=== PATIENT | male | born 1985 | race African-American/Black ===

== ENCOUNTER 2017-11-26 17:04 | Inpatient (IN) | payer BC ==
[2017-11-26 18:30] LABS: Absolute Lymphocytes (CBC) 1.3 K/uL (0.7-4.9); Absolute Monocytes 0.4 K/uL (0.1-1.3); Absolute Neutrophil 7.6 K/uL (1.8-8.0); Basophils % 1.1 % (0-1.3); Eosinophils % 0.1 % (0-4.4); Hematocrit 47.2 % (39.6-49.0); Lymphocytes % 13.8 % (15.3-44.8); MCH 28.9 pg (27.0-35.0); MCV 88.1 fL (80-100); MPV 8.1 fL (7.6-11.3); RBC Red Blood Cell Count 5.36 M/uL (4.33-5.43)
[2017-11-26 18:40] LABS: Protime INR 1.03
[2017-11-26 18:46] LABS: Bicarbonate 18 mEq/L (21-31); Potassium 4.7 mEq/L (3.6-5.0); Sodium Level 126 mEq/L (135-145)
[2017-11-26 18:52] LABS: ALT/SGPT 52 IU/L (10-60); AST/SGOT 31 IU/L (10-42); Albumin 4.3 g/dL (3.2-5.5); Alkaline Phosphatase 51 IU/L (42-121); BUN Blood Urea Nitrogen 15 mg/dL (6-20); Bilirubin Direct 0.2 mg/dL (0-0.2); Bilirubin Total 1.3 mg/dL (0.3-1.2); Creatine Phosphokinase 90 IU/L (22-269); Magnesium 1.7 mg/dL (1.8-2.5); Protein, Total 8.4 g/dL (6.0-8.3)
[2017-11-26 18:54] LABS: CKMB Creatine Kinase MB 1.1 ng/ml (0.3-4.0)
[2017-11-26 19:01] LABS: Glucose Level 508 mg/dL (65-120)
[2017-11-26] MEDS ORDERED: ONDANSETRON 4 MG/2 ML VIAL ONE (19:08)
[2017-11-26] MEDS ORDERED: NA CHLORIDE 0.9% 1,000 ML ONE ×3 (19:08→22:39)
[2017-11-26 19:30] LABS: Blood Gas Oxyhemoglobin 92.1 % (94-97)
[2017-11-26] MEDS ORDERED: ASPIRIN 81 MG CHEWABLE TABLET ONE (19:33)
[2017-11-26] MEDS ORDERED: INSULIN -REGULAR HUMAN 50 UNIT/0.5 ML ML ONE (19:34)
[2017-11-26] MEDS ORDERED: MORPHINE 4 MG/ML SYR ONE (19:34)
[2017-11-26] MEDS ORDERED: MAGNESIUM SULFATE 1 gm IVPB 1 GM/100 ML BAG IV ONE (19:35)
[2017-11-26 19:43] LABS: Phosphorus 3.3 mg/dL (2.5-4.3)
--- NOTE | 2017-11-26 19:45 | RAD REPORT ---
EXAM DESCRIPTION: Tien Single View11/26/2017 6:28 pm CLINICAL HISTORY: Chest pain COMPARISON: none FINDINGS: The lungs appear clear of acute infiltrate. The heart is normal size IMPRESSION: No acute abnormalities displayed
[2017-11-26] MEDS ORDERED: ENOXAPARIN 100 MG/ML SYR SQ ONE (20:05)
--- NOTE | 2017-11-26 21:27 | EDPHYS ---
Physician Documentation [facility] Name: Scout Holloway Age: 32 yrs Sex: Male : 1985 Arrival Date: 11/26/2017 Time: 17:06 Bed 13 Private MD: Endy Rossi ED Physician Man Taveras HPI: 11/26 20:00 This 32 yrs old Black Male presents to ER via Wheelchair with complaints of Chest Pain, pm1 Dizziness, Nausea. 20:00 The patient or guardian reports chest pain that is located primarily in the mid-sternal pm1 area. The pain does not radiate. Associated signs and symptoms: Pertinent positives: dizziness, nausea, Postoperative rectal pain, Pertinent negatives: abdominal pain. The chest pain is described as aching. Duration: The patient or guardian reports multiple episodes, until 1500, onset at 1200. At 1500 it was constant. Modifying factors: The symptoms are alleviated by nothing. the symptoms are aggravated by nothing. Severity of pain: in the emergency department the pain is actually worse is a 8 / 10. chest pain on and off for th past 1 week. The patient has been recently seen by a physician: with similar presenting complaints, Admitted on Saturday and discharged on from [facility]. Patient reports cardiac work up, management of hyperglycemia, and hemorrhoidectomy. Patient started on insulin from [facility]. Saw PCP yesterday and Dr. Rossi adjusted his diabetes medications. Historical: - Allergies: 17:30 No Known Allergies; aj - PMHx: 17:30 Hypertension; Diabetes - IDDM; aj - PSHx: 17:30 hemmorhoids; aj - Immunization history:: Adult Immunizations up to date. - Social history:: Smoking status: Patient/guardian denies using tobacco, Patient/guardian denies using alcohol, street drugs. - Ebola Screening: : Patient negative for fever greater than or equal to 101.5 degrees Fahrenheit, and additional compatible Ebola Virus Disease symptoms Patient denies exposure to infectious person Patient denies travel to an Ebola-affected area in the 21 days before illness onset No symptoms or risks identified at this time. ROS: 20:00 Constitutional: Negative for fever, chills, and weight loss, Eyes: Negative for injury, pm1 pain, redness, and discharge, ENT: Negative for injury, pain, and discharge, Neck: Negative for injury, pain, and swelling. 20:00 Back: Negative for injury and pain, : Negative for injury, bleeding, discharge, and swelling, MS/Extremity: Negative for injury and deformity, Skin: Negative for injury, rash, and discoloration. 20:00 Cardiovascular: Positive for chest pain, Negative for palpitations. 20:00 Respiratory: Positive for shortness of breath, Negative for cough, wheezing. 20:00 Abdomen/GI: Positive for nausea, diarrhea, Negative for abdominal pain, vomiting. 20:00 Neuro: Positive for dizziness, Negative for headache, syncope, near syncope, weakness. Exam: 20:00 Constitutional: This is a well developed, well nourished patient who is awake, alert, pm1 and in no acute distress. Head/Face: Normocephalic, atraumatic. Eyes: Pupils equal round and reactive to light, extra-ocular motions intact. Lids and lashes normal. Conjunctiva and sclera are non-icteric and not injected. Cornea within normal limits. Periorbital areas with no swelling, redness, or edema. ENT: Nares patent. No nasal discharge, no septal abnormalities noted. Tympanic membranes are normal and external auditory canals are clear. Oropharynx with no redness, swelling, or masses, exudates, or evidence of obstruction, uvula midline. Mucous membranes moist. Neck: Trachea midline, no thyromegaly or masses palpated, and no cervical lymphadenopathy. Supple, full range of motion without nuchal rigidity, or vertebral point tenderness. No Meningismus. 20:00 Cardiovascular: Regular rate and rhythm with a normal S1 and S2. No gallops, murmurs, or rubs. Normal PMI, no JVD. No pulse deficits. Respiratory: Lungs have equal breath sounds bilaterally, clear to auscultation and percussion. No rales, rhonchi or wheezes noted. No increased work of breathing, no retractions or nasal flaring. Abdomen/GI: Soft, non-tender, with normal bowel sounds. No distension or tympany. No guarding or rebound. No evidence of tenderness throughout. Back: No spinal tenderness. No costovertebral tenderness. Full range of motion. 20:00 Skin: Warm, dry with normal turgor. Normal color with no rashes, no lesions, and no evidence of cellulitis. MS/ Extremity: Pulses equal, no cyanosis. Neurovascular intact. Full, normal range of motion. 20:00 Chest/axilla: Inspection: normal, Palpation: tenderness, that is moderate, of the right clavicle, left clavicle, anterior aspect of right upper chest, anterior aspect of left upper chest and mid-sternal area, that partially reproduces the patient's complaints. 20:00 Abdomen/GI: Rectal exam: hemorrhoid(s), external, with inflammation, with pain, without bleeding, without thrombosis. 20:00 Neuro: Orientation: is normal, Motor: moves all fours, Sensation: is normal, no obvious gross deficits. Vital Signs: 17:30 BP 101 / 72; Pulse 117; Resp 21; Temp 97.6; Pulse Ox 99% on R/A; Weight 142.43 kg; aj Height 6 ft. 0 in. (182.88 cm); 18:20 BP 113 / 78; Pulse 120; Resp 24 S; Temp 98.3; Pulse Ox 99% on R/A; Pain 8/10; ch 19:15 BP 134 / 101; Pulse 109; Resp 18; Pulse Ox 98% on R/A; tl2 20:20 BP 130 / 88; Pulse 105; Resp 17; Pulse Ox 100% on R/A; Pain 3/10; tl2 21:06 BP 139 / 70; Pulse 105; Resp 13; Pulse Ox 98% on R/A; tl2 22:04 BP 129 / 89; Pulse 111; Resp 17; Pulse Ox 98% on R/A; tl2 17:30 Body Mass Index 42.59 (142.43 kg, 182.88 cm) aj MDM: 18:06 Patient medically screened. pm1 21:15 Data reviewed: vital signs. Data interpreted: Pulse oximetry: on room air is 98 %. pm1 Interpretation: normal. 21:15 ED course: patient chest pain free. pm1 11/26 18:08 Order name: Basic Metabolic Panel; Complete Time: 19:04 pm1 11/26 18:08 Order name: BNP; Complete Time: 19:04 pm1 11/26 18:08 Order name: CBC with Diff; Complete Time: 18:36 pm1 11/26 18:08 Order name: Ckmb; Complete Time: 19:04 pm1 11/26 18:08 Order name: CPK; Complete Time: 19:04 pm1 11/26 18:08 Order name: LFT's; Complete Time: 19:04 pm11/26 18:08 Order name: Magnesium; Complete Time: 19:04 pm1 11/26 18:08 Order name: PT-INR; Complete Time: 18:46 pm1 11/26 18:08 Order name: Ptt, Activated; Complete Time: 18:46 pm1 11/26 18:08 Order name: Troponin (emerg Dept Use Only); Complete Time: 19:04 pm1 11/26 19:09 Order name: ABG; Complete Time: 21:20 pm1 11/26 19:09 Order name: Acetone, Serum; Complete Time: 20:13 pm1 11/26 19:12 Order name: Phosphorus; Complete Time: 19:46 pm1 11/26 19:12 Order name: Lipase; Complete Time: 19:46 pm1 11/26 17:46 Order name: EKG Electrocardiogram; Complete Time: 18:37 EDMS 11/26 18:08 Order name: XRAY Chest (1 view); Complete Time: 19:46 pm1 11/26 18:08 Order name: Cardiac monitoring; Complete Time: 19:22 pm1 11/26 18:08 Order name: IV Saline Lock; Complete Time: 18:25 pm1 11/26 18:08 Order name: Labs collected and sent; Complete Time: 19:19 pm1 11/26 18:08 Order name: O2 Per Protocol; Complete Time: 19:21 pm1 11/26 18:08 Order name: O2 Sat Monitoring; Complete Time: 19:21 pm1 Administered Medications: 19:20 Drug: NS 0.9% 1000 ml Route: IV; Rate: 1000 ml; Site: right antecubital; tl2 20:00 Follow up: IV Status: Completed infusion; IV Intake: 1000ml tl2 19:20 Drug: Zofran 4 mg Route: IVP; Site: right antecubital; tl2 20:00 Follow up: Response: No adverse reaction; Nausea is decreased tl2 19:49 Drug: Aspirin Chewable Tablet 324 mg Route: PO; tl2 11/27 00:24 Follow up: Response: No adverse reaction tl2 11/26 19:49 Drug: morphine 4 mg Route: IVP; Site: right antecubital; tl2 20:30 Follow up: Response: No adverse reaction; Pain is decreased tl2 19:49 Drug: Magnesium Sulfate 1 grams Route: IVPB; Infused Over: 1 hrs; Site: right tl2 antecubital; 11/27 00:25 Follow up: IV Status: Completed infusion tl2 11/26 19:50 Drug: Insulin Regular Human 15 units {Co-Signature: (Selena Castillo RN).} Route: tl2 Sub-Q; Site: right upper arm; 22:30 Follow up: Response: No adverse reaction; Blood sugar is lowered tl2 20:19 Drug: NS 0.9% 1000 ml Route: IV; Rate: 1000 ml; Site: right antecubital; tl2 21:30 Follow up: IV Status: Completed infusion; IV Intake: 1000ml tl2 20:19 Drug: Lovenox 1 mg/kg Route: Sub-Q; Site: right lower abdomen; tl2 11/27 00:25 Follow up: Response: No adverse reaction tl2 11/26 22:45 Drug: Lopressor (metoprolol TARTRATE) 50 mg Route: PO; tl2 11/27 00:26 Follow up: Response: No adverse reaction tl2 11/26 22:45 Drug: NS 0.9% 1000 ml Route: IV; Rate: 125 ml/hr; Site: right antecubital; tl2 11/27 00:26 Follow up: IV Status: Infusion continued upon admission tl2 Point of Care Testing: Blood Glucose: 11/26 21:06 Blood Glucose: 380 mg/dL; tl2 Ranges: Critical Glucose Levels:Adult <50 mg/dl or >400 mg/dl <40 mg/dl or >180 mg/dl Disposition: 11/26/17 21:26 Hospitalization ordered by Aimee Bullard for Inpatient Admission. Preliminary diagnosis are Non-ST elevation (NSTEMI) myocardial infarction, Hyperglycemia, unspecified, Dehydration. - Bed requested for Telemetry/MedSurg (Inpatient). - Status is Inpatient Admission. tl2 - Condition is Stable. - Problem is new. - Symptoms have improved. UTI on Admission? No Addendum: 11/28/2017 12:07 Co-signature as Attending Physician, Man Taveras MD. g s Signatures: Dispatcher [employer] Ursula Alejo RN RN kl Myers, Amanda, RN RN aj Marinas, Patrick, NP DRIER [employer]T CONVEYOR pm1 Beckie Reed RN RN tl2 Man Taveras MD MD Selena Castillo RN Corrections: (The following items were deleted from the chart) 11/26 21: 21:26 Hospitalization Ordered by Aimee Bullard MD for Inpatient Admission. Preliminary pm1 diagnosis is Hyperglycemia, unspecified; Non-ST elevation (NSTEMI) myocardial infarction. Bed requested for Telemetry/MedSurg (Inpatient). Status is Inpatient Admission. Condition is Stable. Problem is new. Symptoms have improved. UTI on Admission? No. pm1 21:26 21:26 11/26/2017 21:26 Hospitalization Ordered by Aimee Bullard MD for Inpatient pm1 Admission. Preliminary diagnosis is Non-ST elevation (NSTEMI) myocardial infarctionHyperglycemia, unspecified. Bed requested for Telemetry/MedSurg (Inpatient). Status is Inpatient Admission. Condition is Stable. Problem is new. Symptoms have improved. UTI on Admission? No. pm1 23:19 21:26 11/26/2017 21:26 Hospitalization Ordered by Aimee Bullard MD for Inpatient kl Admission. Preliminary diagnosis is Non-ST elevation (NSTEMI) myocardial infarctionHyperglycemia, unspecified; Dehydration. Bed requested for Telemetry/MedSurg (Inpatient). Status is Inpatient Admission. Condition is Stable. Problem is new. Symptoms have improved. UTI on Admission? No. pm1 11/27 00:27 11/26 23:19 11/26/2017 21:26 Hospitalization Ordered by Aimee Bullard MD for Inpatient tl2 Admission. Preliminary diagnosis is Non-ST elevation (NSTEMI) myocardial infarctionHyperglycemia, unspecified; Dehydration. Bed requested for Telemetry/MedSurg (Inpatient). Status is Inpatient Admission. Condition is Stable. Problem is new. Symptoms have improved. UTI on Admission? No. kl
--- NOTE | 2017-11-26 21:27 | ER ---
Nurse's Notes [facility] Name: Scout Holloway Age: 32 yrs Sex: Male : 1985 Arrival Date: 11/26/2017 Time: 17:06 Bed 13 Private MD: Endy Rossi Diagnosis: Hyperglycemia, unspecified;Non-ST elevation (NSTEMI) myocardial infarction;Dehydration Presentation: 11/26 17:28 Presenting complaint: Patient states: Reports chest pain, diarrhea, nausea for over 1 aj week. Discharged from [facility] last week for elevated FSBS. Patient seen by PCP yesterday. Transition of care: patient was not received from another setting of care. Onset of symptoms was November 19, 2017. Risk Assessment: Do you want to hurt yourself or someone else? Patient reports no desire to harm self or others. Care prior to arrival: None. 17:28 Method Of Arrival: Wheelchair aj 17:28 Acuity: KELLE 3 aj 21:09 Initial Sepsis Screen: Does the patient meet any 2 criteria? No. Patient's initial tl2 sepsis screen is negative. Does the patient have a suspected source of infection? No. Patient's initial sepsis screen is negative. Triage Assessment: 17:30 General: Appears in no apparent distress. comfortable, Behavior is calm, cooperative, aj appropriate for age. Pain: Complains of pain in chest. Neuro: Level of Consciousness is awake, alert, obeys commands, Oriented to person, place, time, situation, Appropriate for age. Cardiovascular: Reports chest pain, Capillary refill < 3 seconds in bilateral fingers Patient's skin is warm and dry. Respiratory: Airway is patent Respiratory effort is even, unlabored, Respiratory pattern is regular, symmetrical. GI: Reports diarrhea, nausea, vomiting. Derm: Skin is intact, is healthy with good turgor, Skin is pink, warm \T\ dry. normal. Historical: - Allergies: 17:30 No Known Allergies; aj - PMHx: 17:30 Hypertension; Diabetes - IDDM; aj - PSHx: 17:30 hemmorhoids; aj - Immunization history:: Adult Immunizations up to date. - Social history:: Smoking status: Patient/guardian denies using tobacco, Patient/guardian denies using alcohol, street drugs. - Ebola Screening: : Patient negative for fever greater than or equal to 101.5 degrees Fahrenheit, and additional compatible Ebola Virus Disease symptoms Patient denies exposure to infectious person Patient denies travel to an Ebola-affected area in the 21 days before illness onset No symptoms or risks identified at this time. Screenin:20 Abuse screen: Denies threats or abuse. Denies injuries from another. Nutritional ch screening: No deficits noted. Tuberculosis screening: No symptoms or risk factors identified. Fall Risk None identified. Assessment: 17:50 General: Appears in no apparent distress. uncomfortable, Behavior is calm, cooperative, ch appropriate for age. Pain: Complains of pain in back, chest, abdomen and anus Pain does not radiate. Pain currently is 9 out of 10 on a pain scale. Pain began gradually, one week ago. 17:50 Neuro: Level of Consciousness is awake, alert, obeys commands, Oriented to person, ch place, time, situation, Media Analyst are equal bilaterally Moves all extremities. Full function Gait is steady, Speech is normal, Facial symmetry appears normal, Facial symmetry: tongue is midline, Pupils are PERRLA, Reports dizziness, weakness shade equally. Cardiovascular: No deficits noted. Respiratory: Airway is patent Respiratory effort is even, unlabored, Respiratory pattern is tachypnea Breath sounds are clear bilaterally. Breath sounds are diminished bilaterally. GI: Reports lower abdominal pain, upper abdominal pain, diarrhea, hemorrhoids, nausea, vomiting. : Reports urgency, urinary frequency. EENT: No signs and/or symptoms were reported regarding the EENT system. Derm: Skin is intact, Skin is clammy, Skin is brown, pale, Skin temperature is warm. Musculoskeletal: Circulation, motion, and sensation intact. Capillary refill < 3 seconds, in bilateral fingers. toes. 19:10 General: Appears in no apparent distress. uncomfortable, Behavior is calm, cooperative, tl2 appropriate for age. Pain: Complains of pain in anus. Neuro: Level of Consciousness is awake, alert, obeys commands, Oriented to person, place, time, situation. Cardiovascular: Reports Chest pain has decreased at this time. Respiratory: Airway is patent Respiratory effort is even, unlabored, Respiratory pattern is regular, symmetrical. GI: Reports diarrhea, nausea. : No signs and/or symptoms were reported regarding the genitourinary system. Derm: Skin is pink, warm \T\ dry. 20:30 Reassessment: Patient appears in no apparent distress at this time. Patient and/or tl2 family updated on plan of care and expected duration. Pain level reassessed. Patient is alert, oriented x 3, equal unlabored respirations, skin warm/dry/pink. Patient denies pain at this time. Patient states feeling better. 22:05 Reassessment: Patient appears in no apparent distress at this time. Patient and/or tl2 family updated on plan of care and expected duration. Pain level reassessed. Patient is alert, oriented x 3, equal unlabored respirations, skin warm/dry/pink. awaiting room assignment. 23:30 Reassessment: Patient appears in no apparent distress at this time. Patient and/or tl2 family updated on plan of care and expected duration. Pain level reassessed. Patient is alert, oriented x 3, equal unlabored respirations, skin warm/dry/pink. 06 00:22 Reassessment: Patient appears in no apparent distress at this time. Pt stable and ready tl2 for transport to floor. Vital Signs: 11/26 17:30 BP 101 / 72; Pulse 117; Resp 21; Temp 97.6; Pulse Ox 99% on R/A; Weight 142.43 kg; aj Height 6 ft. 0 in. (182.88 cm); 18:20 BP 113 / 78; Pulse 120; Resp 24 S; Temp 98.3; Pulse Ox 99% on R/A; Pain 8/10; ch 19:15 BP 134 / 101; Pulse 109; Resp 18; Pulse Ox 98% on R/A; tl2 20:20 BP 130 / 88; Pulse 105; Resp 17; Pulse Ox 100% on R/A; Pain 3/10; tl2 21:06 BP 139 / 70; Pulse 105; Resp 13; Pulse Ox 98% on R/A; tl2 22:04 BP 129 / 89; Pulse 111; Resp 17; Pulse Ox 98% on R/A; tl2 17:30 Body Mass Index 42.59 (142.43 kg, 182.88 cm) Vitals: 18:20 Cardiac Rhythm Assessment Sinus tach. ch ED Course: 17:06 Patient arrived in ED. sb2 17:07 Endy Rossi MD is Private Physician. sb2 17:30 Triage completed. aj 17:30 Arm band placed on right wrist. Patient placed in waiting room, Patient notified of aj wait time. EKG completed in triage. Results shown to MD. 17:51 Fili Mora NP is PHCP. pm1 17:51 Man Taveras MD is Attending Physician. pm1 18:20 No apparent distress. Resting quietly. ch 18:20 Patient has correct armband on for positive identification. Placed in gown. Bed in low ch position. Call light in reach. Side rails up X2. Adult w/ patient. principal systems engineer on. Pulse ox on. NIBP on. Warm blanket given. 18:20 No provider procedures requiring assistance completed. Patient maintains SpO2 ch saturation greater than 95% on room air. Thermoregulation: warm blanket given to patient. 18:24 Initial lab(s) drawn, by me, sent to lab. Inserted saline lock: 20 gauge in right mh5 antecubital area, using aseptic technique. Blood collected. 18:25 Magnesium Sent. 5 18:25 PT-INR Sent. 5 18:25 Ptt, Activated Sent. 5 18:25 Troponin (emerg Dept Use Only) Sent. 5 18:26 X-ray completed. Portable x-ray completed in exam room. Patient tolerated procedure bb2 well. 18:26 Basic Metabolic Panel Sent. 5 18:26 BNP Sent. mh5 18:26 CBC with Diff Sent. 5 18:26 Ckmb Sent. mh5 18:26 CPK Sent. mh5 18:26 LFT's Sent. mh5 18:27 XRAY Chest (1 view) In Process Unspecified. EDMS 18:37 EKG done, by ED staff, reviewed by Fili Mora NP. mh5 19:18 Lipase Sent. mh5 19:18 Phosphorus Sent. mh5 19:18 Acetone, Serum Sent. mh5 19:20 Beckie Reed RN is Primary Nurse. tl2 19:20 Report given to Beckie GEIGER. 21:25 Aimee Bullard MD is Hospitalizing Provider. pm1 [id number] 00:22 Patient admitted, IV remains in place. tl2 Administered Medications: 11/26 19:20 Drug: NS 0.9% 1000 ml Route: IV; Rate: 1000 ml; Site: right antecubital; tl2 20:00 Follow up: IV Status: Completed infusion; IV Intake: 1000ml tl2 19:20 Drug: Zofran 4 mg Route: IVP; Site: right antecubital; tl2 20:00 Follow up: Response: No adverse reaction; Nausea is decreased tl2 19:49 Drug: Aspirin Chewable Tablet 324 mg Route: PO; tl2 11/27 00:24 Follow up: Response: No adverse reaction tl2 11/26 19:49 Drug: morphine 4 mg Route: IVP; Site: right antecubital; tl2 20:30 Follow up: Response: No adverse reaction; Pain is decreased tl2 19:49 Drug: Magnesium Sulfate 1 grams Route: IVPB; Infused Over: 1 hrs; Site: right tl2 antecubital; 11/27 00:25 Follow up: IV Status: Completed infusion tl2 11/26 19:50 Drug: Insulin Regular Human 15 units {Co-Signature: (Selena Castillo RN).} Route: tl2 Sub-Q; Site: right upper arm; 22:30 Follow up: Response: No adverse reaction; Blood sugar is lowered tl2 20:19 Drug: NS 0.9% 1000 ml Route: IV; Rate: 1000 ml; Site: right antecubital; tl2 21:30 Follow up: IV Status: Completed infusion; IV Intake: 1000ml tl2 20:19 Drug: Lovenox 1 mg/kg Route: Sub-Q; Site: right lower abdomen; tl2 11/27 00:25 Follow up: Response: No adverse reaction tl2 11/26 22:45 Drug: Lopressor (metoprolol TARTRATE) 50 mg Route: PO; tl2 11/27 00:26 Follow up: Response: No adverse reaction tl2 11/26 22:45 Drug: NS 0.9% 1000 ml Route: IV; Rate: 125 ml/hr; Site: right antecubital; tl2 11/27 00:26 Follow up: IV Status: Infusion continued upon admission tl2 Point of Care Testing: Blood Glucose: 11/26 21:06 Blood Glucose: 380 mg/dL; tl2 Ranges: Intake: 20:00 IV: 1000ml; Total: 1000ml. tl2 21:30 IV: 1000ml; Total: 2000ml. tl2 Outcome: 21:26 Decision to Hospitalize by Provider. pm1 11/27 00:22 Admitted to Tele accompanied by nurse, via stretcher, room 428, with chart, Report tl2 called to FELY Van Condition: stable Discharge instructions given to patient, Instructed on the need for admit. 00:27 Patient left the ED. tl2 Signatures: Dispatcher [employer] Selena Sheldon RN RN ch Myers, Amanda, RN RN aj Marinas, Patrick, COFOUNDER COFOUNDER pm1 Beckie Reed RN RN tl2 Demi Souza [facility] Elaine Hou 2 Chantel Munoz 2 Selena Castillo RN
[2017-11-26] MEDS ORDERED: METOPROLOL TAR 50 MG TAB ONE (22:38)
[2017-11-26] MEDS ORDERED: ACETAMINOPHEN 500 MG TAB PO PRN (23:01)
[2017-11-26] MEDS ORDERED: MORPHINE 4 MG/ML SYR IV PRN (23:01)
[2017-11-26] MEDS ORDERED: ALPRAZOLAM 0.25 MG TABLET PO PRN (23:01)
[2017-11-26] MEDS: NA CHLORIDE 0.9% 1,000 ML IV SCH (23:45)
[2017-11-27 00:31] VITALS: BMI 42.4
[2017-11-27 05:04] LABS: Absolute Monocytes 0.7 K/uL (0.1-1.3); Absolute Neutrophil 3.7 K/uL (1.8-8.0); Basophils % 0.7 % (0-1.3); Eosinophils % 0.5 % (0-4.4); Hematocrit 40.4 % (39.6-49.0); Lymphocytes % 40.3 % (15.3-44.8); MCH 29.3 pg (27.0-35.0); MPV 8.1 fL (7.6-11.3); RBC Red Blood Cell Count 4.65 M/uL (4.33-5.43)
[2017-11-27] MEDS: NA CHLORIDE 0.9% 1,000 ML IV SCH (05:25)
[2017-11-27 06:07] LABS: BUN Blood Urea Nitrogen 12 mg/dL (6-20); Bicarbonate 21 mEq/L (21-31); Glucose Level 367 mg/dL (65-120); HDL Cholesterol 31 mg/dL (27-67); LDL Cholesterol, Calculated 81 (<130); Potassium 4.1 mEq/L (3.6-5.0); Sodium Level 134 mEq/L (135-145)
[2017-11-27 06:30] LABS: Urine Appearance CLEAR; Urine Bilirubin NEGATIVE (NEG); Urine Blood NEGATIVE (NEG); Urine Color YELLOW; Urine Glucose 3+ (NEG); Urine Protein TRACE (NEG); Urine Specific Gravity >=1.030 (1.005-1.030); Urine Urobilinogen 0.2 mg/dL (0.2-1.0); Urine pH 5.5 (5.0-7.0)
[2017-11-27 06:31] LABS: Urine Microscopic Reflex ORDER UMIC
[2017-11-27 06:43] LABS: Urine Bacteria <20 /HPF (NONE SEEN); Urine Culture Reflex Order REFLEXED; Urine Mucus 1+ /HPF (NONE SEEN); Urine RBC NONE SEEN /HPF (NONE SEEN)
[2017-11-27] MEDS ORDERED: GLUCAGON 1 MG/VIAL IM PRN ×2 (06:55→10:35)
[2017-11-27] MEDS ORDERED: D50W 25 GM/50 ML SYRINGE IV PRN ×2 (06:55→10:35)
[2017-11-27] MEDS ORDERED: INSULIN 70/30 100 UNITS/ML SQ ONE (06:56)
--- NOTE | 2017-11-27 07:03 | P.HP ---
Certification for Inpatient Patient admitted to: Inpatient With expected LOS: >2 Midnights Patient will require the following post-hospital care: None Practitioner: I am a practitioner with admitting privileges, knowledge of patient current condition, hospital course, and medical plan of care. Services: Services provided to patient in accordance with Admission requirements found in Title 42 Section 412.3 of the Code of Federal Regulations Patient History Date of Service: 11/26/17 Reason for admission: Hyperglycemia/elevated troponins T's (possible non ST- elevation myocardial) History of Present Illness: Patient is a 32-year-old gentleman who came into the hospital with numerous complaints. He states he started having midsternal chest pain which did not radiate. Patient had dizziness as well as nausea. Patient recently had a hemorrhoidectomy and has been doing well from that standpoint. Patient did have cardiac clearance at that time which was unremarkable. Patient was discharged with since coming home was having some chest discomfort along with the nausea. In the emergency room patient was found to have severely elevated blood sugars. Patient has a few other electrolyte abnormalities including low magnesium and sodium. We will gently hydrate patient and hopefully patient's symptoms are improved once this is done. Allergies No Known Allergies Allergy (Unverified 11/26/17 22:15) Home Medications: Acetaminophen with Codeine [Acetaminophen-Cod #3 Tablet] 1 tab PO Q6H PRN Allopurinol [Zyloprim] 300 mg PO DAILY 11/27/17 Amlodipine Besylate/Benazepril [Amlodipine-Benazepril 10-20 mg] 1 each PO DAILY 11/27/17 Colchicine 1 tab PO BID 11/27/17 Metformin HCl 500 mg PO BIDL 11/27/17 - Past Medical/Surgical History Diabetic: Yes -: HTN -: NIDDM (October 2017) -: gout -: hemorrhoids removal (October) - Family History Father Medical History: Diabetes - Social History Smoking Status: Never smoker Alcohol use: No CD- Drugs: No Caffeine use: No Place of Residence: Home Review of Systems 10-point ROS is otherwise unremarkable Physical Examination - Vital Signs Temperature: 97.8 F Blood Pressure: 158/83 Pulse: 95 Respirations: 19 Pulse Ox (%): 98 - Physical Exam General: Alert, In no apparent distress, Oriented x3 HEENT: Atraumatic, PERRLA, Mucous membr. moist/pink, EOMI, Sclerae nonicteric Neck: Supple, 2+ carotid pulse no bruit, No LAD, Without JVD or thyroid abnormality Respiratory: Clear to auscultation bilaterally, Normal air movement Cardiovascular: Regular rate/rhythm, Normal S1 S2, No murmurs Gastrointestinal: Normal bowel sounds, Soft and benign, Non-distended, No tenderness Musculoskeletal: No clubbing, No swelling, No tenderness Integumentary: No rashes Neurological: Normal gait, Normal speech, Normal strength at 5/5 x4 extr, Normal tone, Sensation intact, Cranial nerves 3-12 intact, Normal affect Lymphatics: No axilla or inguinal lymphadenopathy - Studies Laboratory Data (last 24 hrs) 11/26/17 19:22: Phosphorus 3.3, Lipase 24 11/26/17 18:20: PT 12.2, INR 1.03, APTT 24.7 11/26/17 18:20: WBC 9.4, Hgb 15.5, Hct 47.2, Plt Count 459 H 11/26/17 18:20: B-Natriuretic Peptide < 10 11/26/17 18:20: Sodium 126 L, Potassium 4.7, BUN 15, Creatinine 1.10, Glucose 508 H*, Magnesium 1.7 L, Total Bilirubin 1.3 H, AST 31, ALT 52, Alkaline Phosphatase 51 Assessment & Plan - Problems (Diagnosis) (1) Hyperglycemia Current Visit: Yes Status: Acute (2) Hyponatremia Current Visit: Yes Status: Acute (3) Status post hemorrhoidectomy Current Visit: Yes Status: Acute (4) Hypomagnesemia Current Visit: Yes Status: Acute - Plan Plan: 1. Gently hydrate patient 2. Serial troponins and EKG 3. Monitor electrolytes closely and replace as needed 4. Strict blood pressure and blood sugar control. Will stop metformin and had liver right. May need to add insulin subcutaneous 5. GI and DVT prophylaxis Discharge Plan: Home Plan to discharge in: 24 Hours - Advance Directives Does patient have a Living Will: No Does patient have a Durable POA for Healthcare: No - Code Status/Comfort Care Code Status Assessed: Yes Code Status: Full Code Critical Care: No Time Spent Managing PTS Care (In Minutes): 45
--- NOTE | 2017-11-27 07:41 | EKG ---
Test Date: 2017-11-26 Test Time: 17:31:17 Administrative Analyst: ANNA MEASUREMENT RESULTS: Intervals: Rate: 122 [place]: 174 QRSD: 82 QT: 308 QTc: 438 [place]: P: 56 [place]: 174 QRS: 63 T: 61 INTERPRETIVE STATEMENTS: Sinus tachycardia Abnormal ECG No previous ECG available for comparison Electronically Signed On 11-27-17 07:40:35 CDT by Bird Moreno
[2017-11-27] MEDS: METOPROLOL TAR 50 MG TAB PO SCH ×3 (08:00→16:06)
[2017-11-27] MEDS ORDERED: glyBURIDE 2.5 MG TAB PO SCH (08:00)
[2017-11-27] MEDS ORDERED: Morphine 2 MG/2 ML SYR IV PRN (08:14)
[2017-11-27] MEDS: ASPIRIN EC 81 MG TAB PO SCH (09:57)
[2017-11-27 10:00] LABS: A1c Component 1.66 mg/dL; Hemoglobin A1c 13.2 % (4-6.0)
[2017-11-27] MEDS ORDERED: REGADENOSON 0.4 MG/5 ML SYR IV ONE (10:13)
--- NOTE | 2017-11-27 10:42 | ECHO ---
HEIGHT: 6 ft 0 in WEIGHT: 312 lb 12.8 oz DATE OF STUDY: 11/27/[address]: Aimee Bullard MD 2-DIMENSIONAL: YES M.MODE: YES DOPPLER: YES COLOR FLOW: YES TDS: NO PORTABLE: NO DEFINITY: NO BUBBLE STUDY: NO DIAGNOSIS: SYNCOPE CARDIAC HISTORY: CATHERIZATION: NO SURGERY: NO PROSTHETIC VALVE: NO PACEMAKER: NO MEASUREMENTS (cm) DIASTOLIC (NORMALS) SYSTOLIC (NORMALS) IVSd 1.1 (0.6-1.2) LA Diam 3.3 (1.9-4.0) LVEF 79% LVIDd 4.8 (3.5-5.7) LVIDs 2.5 (2.0-3.5) %FS 47% LVPWd 1.1 (0.6-1.2) Ao Diam 3.0 (2.0-3.7) 2 DIMENSIONAL ASSESSMENT: RIGHT ATRIUM: NORMAL LEFT ATRIUM: NORMAL RIGHT VENTRICLE: NORMAL LEFT VENTRICLE: NORMAL TRICUSPID VALVE: NORMAL MITRAL VALVE: NORMAL PULMONIC VALVE: NORMAL AORTIC VALVE: NORMAL PERICARDIAL EFFUSION: NONE AORTIC ROOT: NORMAL LEFT VENTRICULAR WALL MOTION: NORMAL. DOPPLER/COLOR FLOW: NORMAL. COMMENTS: NORMAL 2D ECHO WITH DOPPLER. TECHNOLOGIST: FRIDA BORGES
--- NOTE | 2017-11-27 11:14 | CON ---
History Of Present Illness: Mr. Holloway came to the hospital with chest pain. His blood sugar was ov er 500. He was feeling sick to his stomach. He was not in ketoacidosis. His blood sugars are aroun d 300. He feels better now. The chest pain he had was central chest, felt more uncomfortable and pa inful, lasted about an hour. Since he has been here in the hospital, he has had troponins done. He has had several done, of course. The first one was 0.10, second one 0.07, third one 0.06. He has no rmal BUN and creatinine. He has a history of gout for several years, probably 10. He has new onset diabetes. His outpatient physician is Dr. Rossi. Outpatient medications are allopurinol, amlodipin e, benazepril, metformin, acetaminophen, and colchicine. He has never had myocardial infarction, str cyn, thrombosis, any cardiac surgery, any other vascular surgery. Physical Examination: Vital Signs: Height 6 feet tall, 312 pounds. General: Obese, alert, oriented, pleasant, not in distress. Neck: No carotid bruit. Lungs: Clear. Heart: Within normal limits. Abdomen: Soft. Extremities: Within normal limits. No cyanosis, clubbing, or edema. Laboratory Data: We talked about the troponins. Blood sugars and calcium levels were noted to be lo w. His total cholesterol is 155, LDL is 81, triglycerides 214. Social History: He uses no tobacco. No illegal drugs. Rare alcohol. Impression: Mr. Holloway probably does not have an acute coronary syndrome. I have recommended an ech o and nuclear stress test to see if there is ischemia. My first suggestion was to do a heart catheterization. He was reluctant. He agreed to do the stress test. Consider a heart catheterizati on if it is abnormal. BRENDAN/SUDEEP Voice ID: [id number] Report ID: [id number]
[2017-11-27] MEDS: INSULIN -REGULAR HUMAN 50 UNIT/0.5 ML ML SQ SCH ×3 (11:26→20:28)
--- NOTE | 2017-11-27 13:37 | EKG ---
Test Date: 2017-11-26 Test Time: 18:32:43 Manager Data: BRYN MEASUREMENT RESULTS: Intervals: Rate: 114 [place]: 188 QRSD: 84 QT: 318 QTc: 438 [place]: P: 45 [place]: 188 QRS: 64 T: 23 INTERPRETIVE STATEMENTS: Sinus tachycardia Nonspecific ST abnormality Abnormal ECG Compared to ECG 11/26/2017 17:31:17 ST (T wave) deviation now present Electronically Signed On 11-27-17 13:36:28 CDT by Bird Moreno
--- NOTE | 2017-11-27 13:49 | TREADPHA ---
DX: ATYPICAL CHEST PAIN Date of Study: 11/27/2017 Ht: 6 0 Wt: 312 lb 12.8 oz Consulting Physician: CHAD MEDICATIONS: TYLENOL, XANAX, ASPIRIN, DEXTROSE, GLUCAGEN, DIABETES, LOPRESSOR HISTORY: 32 YEAR OLD MALE WITH COMPLAINTS OF CHEST PAIN. HISTORY OF DIABETES MELLITUS AND HYPERTENSION. PHYSICIAL EXAMINATION: RESTING B.P.: 125/78 RESTING H.R.: 92 RESTING EKG: NORMAL PROTOCOL: LEXISCAN EXERCISE TIME: 3:30 B.P. AT PEAK STRESS: 122/74 IMPRESSION: LEXISCAN INJECTED, CARDIOLITE INJECTED PER PROTOCOL. SEE NUCLEAR MEDICINE REPORT. NO SUPRAVENTRICULAR TACHYCARDIA. NO VENTRICULAR TACHYCARDIA. NO PREMATURE VENTRICULAR COMPLEXES. DENIES CHEST PAIN. NON-DIAGNOSTIC ELECTROCARDIOGRAM WITH LEXISCAN STRESS.
--- NOTE | 2017-11-27 14:16 | RAD REPORT ---
EXAM DESCRIPTION: NM - Rest Stress Cardiac Imaging - 11/27/2017 2:08 pm CLINICAL HISTORY: Chest pain COMPARISON: None. TECHNIQUE: The patient was administered 11 mCi of Tc 99m Sestamibi prior to resting SPECT imaging of the heart. The patient was then administered 30.9 mCi of Tc 99m Sestamibi following exercise or phar macologic stress. Multiplanar SPECT images were reviewed. FINDINGS: Ventricular volumes and ejection fraction could not be calculated due to technical problem s with the examination. Cardiac echo would be an alternative means for calculating these values. No stress-induced ischemic changes identifiable. Diminished activity along the inferior septal wall i s mostly artifact. No true, significant area of scarring identifiable. IMPRESSION: No stress-induced ischemia and no significant scarring identifiable. Due to technical factors, ventricular volumes and ejection fraction could not be calculated. Followup cardiac echo could be performed if not already done to determine these values.
--- NOTE | 2017-11-27 14:19 | P.PN ---
Subjective Date of Service: 11/27/17 Chief Complaint: Hyperglycemia/elevated troponins T's (possible non ST- elevation myocardial) Patient seen and examined at bedside with RN. Chart reviewed. Case discussed with cardiology at this time. Currently patient has questioning concerns about his diabetes. at bedside. and patient educated extensively for more than an hr about diabetic diet medication compliance and lifestyle modification with a new diagnosis of diabetes. Patient was also educated extensively on the need for lab work and frequent appointments with primary care provider to adequately manage his diabetes. Patient and at bedside both demonstrated understanding. No complains to offer at this time Review of Systems General: As per HPI Physical Examination - Vital Signs Temperature: 97.2 F Blood Pressure: 140/84 Pulse: 100 Respirations: 18 Pulse Ox (%): 100 - Physical Exam General: Alert, In no apparent distress, Oriented x3, Obese HEENT: Atraumatic, PERRLA, EOMI Neck: Supple, JVD not distended Respiratory: Clear to auscultation bilaterally, Normal air movement Cardiovascular: Regular rate/rhythm, Normal S1 S2 Gastrointestinal: Normal bowel sounds, No tenderness Musculoskeletal: No tenderness Integumentary: No rashes Neurological: Normal speech, Normal tone, Normal affect Lymphatics: No axilla or inguinal lymphadenopathy - Studies Laboratory Data (last 24 hrs) 11/26/17 19:22: Phosphorus 3.3, Lipase 24 11/26/17 18:20: PT 12.2, INR 1.03, APTT 24.7 11/26/17 18:20: WBC 9.4, Hgb 15.5, Hct 47.2, Plt Count 459 H 11/26/17 18:20: B-Natriuretic Peptide < 10 11/26/17 18:20: Sodium 126 L, Potassium 4.7, BUN 15, Creatinine 1.10, Glucose 508 H*, Magnesium 1.7 L, Total Bilirubin 1.3 H, AST 31, ALT 52, Alkaline Phosphatase 51 Medications List Reviewed: Yes Assessment & Plan - Problems (Diagnosis) (1) DKA (diabetic ketoacidoses) Current Visit: Yes Status: Acute Plan: Mild DKA with Gap of 13 in the ED. -S/P NS. DKA resolved. No insulin ggt required. -On ISS for now -Will start on home insuling 70/30 20 units BID -Educated on Diet and exercise -ADA diet Qualifiers: Diabetes mellitus type: type 2 Diabetes mellitus complication detail: without coma Qualified Code(s): E11.10 - Type 2 diabetes mellitus with ketoacidosis without coma (2) NSTEMI (non-ST elevated myocardial infarction) Current Visit: Yes Status: Acute Plan: Elevated Troponin -Stress test and ECHO WNL. -Cardiology consulted. (3) Diabetes Current Visit: Yes Status: Acute Plan: New Diagnosis with Hga1c of 13.1 -ISS for now here -Novolog 70/30 20 units BID at home Qualifiers: Diabetes mellitus type: type 2 Diabetes mellitus watermelon inspector insulin use: without watermelon inspector use Diabetes mellitus complication status: without complication Qualified Code(s): E11.9 - Type 2 diabetes mellitus without complications (4) Hyperlipidemia Current Visit: Yes Status: Acute Qualifiers: Hyperlipidemia type: mixed hyperlipidemia Qualified Code(s): E78.2 - Mixed hyperlipidemia (5) Morbid obesity Current Visit: Yes Status: Chronic Discharge Plan: Home Plan to discharge in: 48 Hours - Code Status/Comfort Care Code Status Assessed: Yes Critical Care: No
[2017-11-27 15:52] VITALS: O2SAT 99
[2017-11-28] MEDS: METOPROLOL TAR 50 MG TAB PO SCH (05:55)
[2017-11-28 07:55] VITALS: TEMP 97.9
[2017-11-28] MEDS: INSULIN -REGULAR HUMAN 50 UNIT/0.5 ML ML SQ SCH ×2 (08:07→11:38)
[2017-11-28] MEDS: ASPIRIN EC 81 MG TAB PO SCH (08:09)
[2017-11-28] MEDS ORDERED: AMLODIPINE 10 MG TAB PO SCH (09:00)
[2017-11-28] MEDS ORDERED: HOME MED 1 EA UNK (Amlodipine Besylate/Benazepril [Amlodipine-Benazepril 10-20 Mg] 1 EACH) PO SCH (09:00)
[2017-11-28] MEDS ORDERED: BENAZEPRIL 20 MG TAB PO SCH (09:00)
[2017-11-28] MEDS ORDERED: ALLOPURINOL 300 MG TAB PO SCH (09:00)
[2017-11-28] MEDS ORDERED: INSULIN 70/30 100 UNITS/ML SQ ONE (10:04)
[2017-11-28 12:36] VITALS: BP 133/80
--- NOTE | 2017-11-28 14:15 | P.DS ---
Admission Date: 11/26/17 Discharge Date: 11/28/17 Disposition: ROUTINE DISCHARGE Discharge Condition: GOOD Reason for Admission: Hyperglycemia/elevated troponins T's (possible non ST- elevation myocardial) Brief History of Present Illness: By Dr Bullard Patient is a 32-year-old gentleman who came into the hospital with numerous complaints. He states he started having midsternal chest pain which did not radiate. Patient had dizziness as well as nausea. Patient recently had a hemorrhoidectomy and has been doing well from that standpoint. Patient did have cardiac clearance at that time which was unremarkable. Patient was discharged with since coming home was having some chest discomfort along with the nausea. In the emergency room patient was found to have severely elevated blood sugars. Patient has a few other electrolyte abnormalities including low magnesium and sodium. We will gently hydrate patient and hopefully patient's symptoms are improved once this is done. Hospital Course: The patient was admitted to the hospital due to chest pain and mild DKA. He had a few serum ketons, anion gap was 13 at admission. He was treated with IV fluids , and Regular insulin. He rapidly improved from DKA. His chest pain also resolved, however he had elevated troponin I. EKG showed sinus tachycardia with nonspecific ST abnormalities. He was evaluated by Cardiology team whe recommended ECHO and stress test. ECHO showed normal LV function with EF 79% without WMA. NM stress test report No stress-induced ischemia and no significant scarring identifiable. Because his BS were not well controlled, his PCP recently prescribed 70/30 insulin, however, the patient was admitted to the hospital before fill the prescription. At this point the patient is clinically and hemodynamically stable. I have encouraged to follow his PCP recommendation regarding insulin dose and have a close follow up of his BS. He will be discharge home in stable condition. Vital Signs/Physical Exam: Temp Pulse Resp BP Pulse Ox 97.9 F 87 18 133/80 97 11/28/17 12:00 11/28/17 12:00 11/28/17 12:00 11/28/17 12:11/28/17 12:00 General: Alert, In no apparent distress HEENT: Atraumatic, PERRLA, EOMI Neck: Supple, JVD not distended Respiratory: Clear to auscultation bilaterally, Normal air movement Cardiovascular: Regular rate/rhythm, Normal S1 S2 Gastrointestinal: Normal bowel sounds, No tenderness Musculoskeletal: No tenderness Integumentary: No rashes Neurological: Normal speech, Normal tone, Normal affect Lymphatics: No axilla or inguinal lymphadenopathy Laboratory Data at Discharge: WBC 7.5 K/uL (4.3-10.9) D 11/27/17 04:27 Hgb 13.6 g/dL (13.6-17.9) 11/27/17 04:27 Hct 40.4 % (39.6-49.0) 11/27/17 04:27 Plt Count 394 K/uL (152-406) 11/27/17 04:27 PT 12.2 SECONDS (9.5-12.5) 11/26/17 18:20 INR 1.03 11/26/17 18:20 APTT 24.7 SECONDS (24.3-36.9) 11/26/17 18:20 Sodium 134 mEq/L (135-145) L 11/27/17 04:27 Potassium 4.1 mEq/L (3.6-5.0) 11/27/17 04:27 BUN 12 mg/dL (6-20) 11/27/17 04:27 Creatinine 0.87 mg/dL (0.61-1.24) 11/27/17 04:27 Glucose 367 mg/dL (65-120) H 11/27/17 04:27 Phosphorus 3.3 mg/dL (2.5-4.3) 11/26/17 19:22 Magnesium 1.7 mg/dL (1.8-2.5) L 11/26/17 18:20 Total Bilirubin 1.3 mg/dL (0.3-1.2) H 11/26/17 18:20 AST 31 IU/L (10-42) 11/26/17 18:20 ALT 52 IU/L (10-60) 11/26/17 18:20 Alkaline Phosphatase 51 IU/L (42-121) 11/26/17 18:20 Troponin I 0.06 ng/mL (<0.03) H 11/27/17 04:27 B-Natriuretic Peptide < 10 pg/ml (<=100) 11/26/17 18:20 Triglycerides Cancelled 11/27/17 06:00 Cholesterol Cancelled 11/27/17 06:00 HDL Cholesterol Cancelled 11/27/17 06:00 Cholesterol/HDL Ratio Cancelled 11/27/17 06:00 Lipase 24 U/L (22-51) 11/26/17 19:22 Home Medications: Acetaminophen with Codeine [Acetaminophen-Cod #3 Tablet] 1 tab PO Q6H PRN Allopurinol [Zyloprim*] 300 mg PO DAILY 11/27/17 Amlodipine Besylate/Benazepril [Amlodipine-Benazepril 10-20 mg] 1 each PO DAILY 11/27/17 Colchicine 1 tab PO BID 11/27/17 Patient Discharge Instructions: The patient states that Dr Higgins already gave him a prescription for Insulin 70/30 with dose and direction how to take. According to the patient he has filled the prescription and is ready to start tonight. Diet: ADA Activity: Ad gilles Time spent managing pt's care (in minutes): 40
== END 2017-11-28 15:20 | disposition home or self-care (01) | DRG 638 ==
LOC: ER 17:04 → ERHOLD 22:16 → 4TH 23:30
PROVIDERS: ADMIT Hospitalist; ATTEND Hospitalist
DX: E11.10 Type 2 diabetes mellitus with ketoacidosis without coma (principal); E87.1 Hypo-osmolality and hyponatremia; Z68.41 Body mass index [BMI] 40.0-44.9, adult; I10 Essential (primary) hypertension; M10.9 Gout, unspecified; E83.42 Hypomagnesemia; E66.9 Obesity, unspecified; R07.9 Chest pain, unspecified; E78.2 Mixed hyperlipidemia; R79.89 Other specified abnormal findings of blood chemistry
CPT/HCPCS: 36415; 71045; 78452; 80048; 80061; 80076; 81003; 81015; 82009; 82550; 82553; 82805; 82962; 83036; 83690; 83735; 83880; 84100; 84484; 85025; 85610; 85730; 87086; 87088; 93005; 93017; 93306; 96365; 96366; 96372; 96375; 99285; A9500; J1650; J2405; J2785; J3475; J7030